=== PATIENT | male | born 1950 | race Hispanic/Latino ===

== ENCOUNTER 2017-08-17 14:30 | Inpatient (IN) | payer MEDICARE ==
[~2017-08-17] VITALS: Ht 175.3 cm; Wt 128.8 kg
[2017-08-20] MEDS: CEFAZOLIN SODIUM 1 GM VIAL IVP SCH (07:00)
[2017-08-20 14:57] VITALS: BP 158/95
[2017-08-20 15:03] LABS: APPEARANCE,URINE Clear (CLEAR); BILIRUBIN,URINE Negative (NEGATIVE); COLOR,URINE Yellow (YELLOW); GLUCOSE, URINE (UA) Negative (NEGATIVE); KETONES,URINE Negative (NEGATIVE); LEUKOCYTE ESTERASE ,URINE Negative (NEGATIVE); NITRATE,URINE Negative (NEGATIVE); OCCULT BLOOD,URINE Negative (NEGATIVE); PROTEIN,URINE Negative (NEGATIVE); UROBILINOGEN,URINE 0.2 mg/dL (0.2-1.0)
[2017-08-21] MEDS: CEFAZOLIN SODIUM 1 GM VIAL IVP SCH (15:45)
[2017-08-23] VITALS (26 sets, daily range): BP systolic 99–147; BP diastolic 52–86
[2017-08-23] MEDS ORDERED: LACTATED RINGERS 1000ML 1,000 ML IV ONE (07:04)
[2017-08-23] MEDS ORDERED: BUPIVACAINE/EPI/PF 0.25% 30ML VIAL IJ ONE (07:12)
[2017-08-23] MEDS ORDERED: CEFAZOLIN SODIUM 1 GM VIAL ONE ×2 (07:12→10:25)
[2017-08-23] MEDS ORDERED: TRANEXAMIC ACID 1000MG/10ML IV ONE (07:12)
[2017-08-23] MEDS ORDERED: LIDOCAINE PF 2% 5ML ABBOJECT ONE (07:59)
[2017-08-23] MEDS ORDERED: FENTANYL CITRATE PF 50 MCG/1 ML 2ML VIAL ONE ×3 (07:59→10:46)
[2017-08-23] MEDS ORDERED: PROPOFOL 10 MG/ML 20ML VIAL IV ONE (07:59)
[2017-08-23] MEDS ORDERED: ROCURONIUM BROMIDE 10MG/1ML 5ML VL ONE (07:59)
[2017-08-23] MEDS ORDERED: MIDAZOLAM HCL 1 MG/ML 2ML VIAL ONE (07:59)
[2017-08-23] MEDS ORDERED: DEXAMETHASONE SOD PHOSPHATE 10MG/ML 1ML VIAL ONE (07:59)
[2017-08-23] MEDS ORDERED: ROPIVACAINE 0.5% 5MG/ML 30ML IJ ONE (08:01)
[2017-08-23] MEDS: CEFAZOLIN SODIUM 1 GM VIAL IVP SCH (08:54)
[2017-08-23] MEDS ORDERED: ONDANSETRON HCL MDV 20ML 2 MG/ML VIAL ONE ×2 (09:12→10:19)
[2017-08-23] MEDS ORDERED: GLYCOPYRROLATE 0.2 MG/ML 5 ML VIAL ONE (10:19)
[2017-08-23] MEDS ORDERED: NEOSTIGMINE METHYLSULFATE 1MG/ML IV ONE (10:19)
[2017-08-23] MEDS ORDERED: DIPHENHYDRAMINE HCL 25 MG CAPSULE PO PRN (10:45)
[2017-08-23] MEDS ORDERED: TRAMADOL HCL 50 MG TABLET PO PRN (10:45)
[2017-08-23] MEDS ORDERED: LIDOCAINE HCL-MPF 1% 2ML VIAL IVP PRN (10:45)
[2017-08-23] MEDS ORDERED: OXYCODONE HCL 5 MG TAB PO PRN (10:45)
[2017-08-23] MEDS ORDERED: POTASSIUM CHLORIDE 20MEQ/100ML 100 ML IV PRN (10:45)
[2017-08-23] MEDS ORDERED: PROMETHAZINE HCL 25 MG/ML 1ML AMPULE IM PRN (10:45)
[2017-08-23] MEDS: ACETAMINOPHEN 325 MG TAB PO SCH ×3 (10:45→23:01)
[2017-08-23] MEDS ORDERED: CALCIUM CARBONATE 500 MG TABLET PO PRN (10:45)
[2017-08-23] MEDS ORDERED: TEMAZEPAM 15 MG CAPSULE PO PRN (10:45)
[2017-08-23] MEDS ORDERED: POTASSIUM CHLORIDE 20 MEQ ERTAB PO PRN (10:45)
[2017-08-23] MEDS ORDERED: DiphenhydrAMINE HCL 50 MG/ML VIAL IVP PRN (10:45)
[2017-08-23] MEDS ORDERED: POTASSIUM CHLORIDE 10% ELIXIR 20 MEQ/15 ML UDCUP PO PRN (10:45)
[2017-08-23] MEDS ORDERED: FERROUS FUMARATE 324 MG TABLET PO PRN (10:45)
[2017-08-23] MEDS ORDERED: MEPERIDINE-PF 25 MG/ML SYG ONE ×2 (11:43→11:55)
[2017-08-23] MEDS: PSYLLIUM SEED 1 EACH PACKET PO SCH (12:00)
[2017-08-23] MEDS: CEFAZOLIN 3GM /D5W 100ML 100 ML IV SCH ×2 (16:51→23:30)
[2017-08-23] MEDS: SODIUM CHLORIDE 0.9% 1000ML 1,000 ML IV SCH ×2 (16:52→20:39)
[2017-08-23] MEDS: KETOROLAC TROMETHAMINE 15MG/ML IV PRN (16:59)
[2017-08-23] MEDS: PREGABALIN 25 MG CAP PO SCH (19:51)
[2017-08-23] MEDS: ASPIRIN 325 MG TABLET PO SCH (19:51)
[2017-08-23] MEDS: FAMOTIDINE 20MG TAB 20 MG TAB PO SCH (19:51)
[2017-08-24] MEDS: SODIUM CHLORIDE 0.9% 1000ML 1,000 ML IV SCH (04:50)
[2017-08-24] MEDS: ACETAMINOPHEN 325 MG TAB PO SCH ×4 (05:13→22:45)
[2017-08-24 05:37] VITALS: BP 134/69
[2017-08-24 05:43] LABS: HEMATOCRIT 37.1 % (42-54); MEAN CORPUSCULAR HEMOGLOBIN 30.6 pg (27.0-33.0); MEAN CORPUSCULAR HGB CONC 34.9 g/dL (32.0-36.0); MEAN CORPUSCULAR VOLUME 87.7 fL (79-99); PLATELET COUNT (AUTO) 185 K/uL (130-400); RED BLOOD CELL COUNT(AUTO) 4.23 MIL/uL (4.50-6.20); RED CELL DISTRIBUTION WIDTH 14.2 % (11.0-15.5); WHITE BLOOD COUNT (AUTO) 9.2 K/uL (4.8-10.8)
[2017-08-24 05:55] LABS: CREATININE 0.8 mg/dL (0.5-1.5); POTASSIUM 3.7 mmol/L (3.5-5.1)
[2017-08-24 07:00] VITALS: BP 132/76
[2017-08-24] MEDS: TAMSULOSIN HCL 0.4 MG CAP.ER.24H PO SCH (09:00)
[2017-08-24] MEDS: ASPIRIN 325 MG TABLET PO SCH ×2 (09:31→19:39)
[2017-08-24] MEDS: POLYETHYLENE GLYCOL 3350 17 GM POWD.PACK PO SCH (09:31)
[2017-08-24] MEDS: PREGABALIN 25 MG CAP PO SCH ×2 (09:31→19:39)
[2017-08-24] MEDS: FAMOTIDINE 20MG TAB 20 MG TAB PO SCH ×2 (09:31→19:39)
[2017-08-24] MEDS: KETOROLAC TROMETHAMINE 15MG/ML IV PRN (09:32)
[2017-08-24 11:13] VITALS: BP 110/64
[2017-08-24] MEDS: PSYLLIUM SEED 1 EACH PACKET PO SCH (12:44)
[2017-08-24 15:33] VITALS: BP 102/59
[2017-08-24] MEDS: OXYCODONE HCL 5 MG TAB PO PRN (17:51)
[2017-08-24 20:00] VITALS: BP 128/79
[2017-08-25] VITALS: BP 118/64
[2017-08-25] MEDS: ACETAMINOPHEN 325 MG TAB PO SCH ×2 (03:45→10:35)
[2017-08-25 04:00] VITALS: BP 127/71
[2017-08-25 05:31] LABS: HEMATOCRIT 32.9 % (42-54); MEAN CORPUSCULAR HEMOGLOBIN 31.8 pg (27.0-33.0); MEAN CORPUSCULAR HGB CONC 36.1 g/dL (32.0-36.0); PLATELET COUNT (AUTO) 151 K/uL (130-400); RED BLOOD CELL COUNT(AUTO) 3.74 MIL/uL (4.50-6.20); RED CELL DISTRIBUTION WIDTH 14.1 % (11.0-15.5); WHITE BLOOD COUNT (AUTO) 7.2 K/uL (4.8-10.8)
[2017-08-25 05:49] LABS: CREATININE 0.8 mg/dL (0.5-1.5)
[2017-08-25 07:00] VITALS: BP 120/60
[2017-08-25] MEDS: TAMSULOSIN HCL 0.4 MG CAP.ER.24H PO SCH (09:33)
[2017-08-25] MEDS: FAMOTIDINE 20MG TAB 20 MG TAB PO SCH (09:33)
[2017-08-25] MEDS: ASPIRIN 325 MG TABLET PO SCH (09:33)
[2017-08-25] MEDS: PREGABALIN 25 MG CAP PO SCH (09:33)
[2017-08-25] MEDS: OXYCODONE HCL 5 MG TAB PO PRN (09:33)
[2017-08-25] MEDS: POLYETHYLENE GLYCOL 3350 17 GM POWD.PACK PO SCH (09:33)
[2017-08-25] MEDS ORDERED: BISACODYL 5 MG TABLET.DR PO PRN (10:45)
[2017-08-25 11:00] VITALS: BP 112/52
[2017-08-25] MEDS: PSYLLIUM SEED 1 EACH PACKET PO SCH (11:41)
[2017-08-25] MEDS ORDERED: HYDR-309 PO (13:07)
[2017-08-25] MEDS ORDERED: ASPI-1012 PO (13:07)
[2017-08-26] MEDS ORDERED: BISACODYL 10 MG SUPP.RECT RC PRN (10:45)
[2017-10-28] MEDS ORDERED: NAPR220C15 PO (15:26)
== END 2017-08-25 15:36 | disposition home health service (06) | DRG 470 ==
LOC: EDSTATUS 08-20 14:30 → DAHIP 08-23 05:49 → 4AH 08-23 12:18
PROVIDERS: ADMIT Orthopaedic Surgery; ATTEND Orthopaedic Surgery
PROC: 0SRD0J9 Replacement of Left Knee Joint with Synthetic Substitute, Cemented, Open Approach (ICD-10-PCS; principal; 2017-08-23 08:21)
DX: M17.12 Unilateral primary osteoarthritis, left knee (principal); G89.29 Other chronic pain; Z96.651 Presence of right artificial knee joint; Z88.2 Allergy status to sulfonamides
CPT/HCPCS: 36415; 80048; 81003; 85027; 85730; 88305; 88311; 93005; 97039; A4218; C1713; J0690; J1100; J1885; J2001; J2175; J2250; J2704; J2710; J2795; J3010; J3490; J7120

== ENCOUNTER 2017-10-29 06:32 | Day surgery (SDC) | payer MEDICARE ==
[2017-10-28 15:04] LABS: BASOPHILS % (AUTO) 0.6 % (0.0-5.0); EOSINOPHILS % (AUTO) 3.9 % (0.0-8.0); HEMATOCRIT 41.3 % (42-54); MEAN CORPUSCULAR HEMOGLOBIN 30.1 pg (27.0-33.0); MEAN CORPUSCULAR HGB CONC 34.2 g/dL (32.0-36.0); MEAN CORPUSCULAR VOLUME 87.8 fL (79-99); MONOCYTES % (AUTO) 10.1 % (3.0-13.0); NEUTROPHILS % (AUTO) 57.4 % (40.0-77.0); PLATELET COUNT (AUTO) 245 K/uL (130-400); RED CELL DISTRIBUTION WIDTH 14.4 % (11.0-15.5); WHITE BLOOD COUNT (AUTO) 4.7 K/uL (4.8-10.8)
[2017-10-28 15:07] VITALS: BP 154/80
[2017-10-28 15:13] LABS: CREATININE 0.9 mg/dL (0.5-1.5); POTASSIUM 4.2 mmol/L (3.5-5.1)
[2017-10-28] MEDS: CEFAZOLIN SODIUM 1 GM VIAL IVP SCH (16:15)
[2017-10-29] VITALS (15 sets, daily range): BP systolic 108–132; BP diastolic 57–77
[~2017-10-29] VITALS: Ht 177.8 cm; Wt 127.3 kg
[~2017-10-29 06:32] MED LIST: NAPR220C15 PO
[2017-10-29] MEDS ORDERED: LACTATED RINGERS 1000ML 1,000 ML IV ONE (08:10)
[2017-10-29] MEDS ORDERED: LIDOCAINE PF 2% 5ML ABBOJECT ONE (09:01)
[2017-10-29] MEDS ORDERED: PROPOFOL 10 MG/ML 20ML VIAL IV ONE ×2 (09:01→09:46)
[2017-10-29] MEDS ORDERED: ROCURONIUM BROMIDE 10MG/1ML 5ML VL ONE (09:01)
[2017-10-29] MEDS ORDERED: MIDAZOLAM HCL 1 MG/ML 2ML VIAL ONE (09:01)
[2017-10-29] MEDS ORDERED: FENTANYL CITRATE PF 50 MCG/1 ML 2ML VIAL ONE ×2 (09:02→09:54)
[2017-10-29] MEDS: CEFAZOLIN SODIUM 1 GM VIAL IVP SCH (09:54)
[2017-10-29] MEDS ORDERED: ONDANSETRON HCL MDV 20ML 2 MG/ML VIAL ONE (10:25)
[2017-10-29] MEDS ORDERED: KETOROLAC TROMETHAMINE 30MG/ML ONE (10:25)
[2017-10-29] MEDS ORDERED: MEPERIDINE-PF 25 MG/ML SYG ONE (10:44)
[2017-10-29] MEDS ORDERED: CEPH-578 PO (11:03)
[2017-10-29] MEDS ORDERED: TYL3 PO (11:03)
== END 2017-10-29 12:50 | disposition home or self-care (01) ==
LOC: DAH 06:32
PROVIDERS: ATTEND Orthopaedic Surgery
DX: M67.262 Synovial hypertrophy, not elsewhere classified, left lower leg (principal); Z79.899 Other long term (current) drug therapy; Z98.890 Other specified postprocedural states; Z96.653 Presence of artificial knee joint, bilateral; Z83.3 Family history of diabetes mellitus; Z88.2 Allergy status to sulfonamides
CPT/HCPCS: 29875; 36415; 80048; 85025; A4218; A4606; A4649 ×2; A4930 ×2; A6223; J0690; J1885; J2001; J2175; J2250; J2704 ×2; J3010 ×2; J3490; J7120 ×2

== ENCOUNTER → 2018-02-09 | Outpatient (CLI) | payer OTHER ==
[~2018-02-09] MED LIST changes: +CEPH-578 PO; +TYL3 PO
== END | disposition home or self-care (01) ==
LOC: OIH 13:46
PROVIDERS: ATTEND Internal Medicine Cardiovascular Disease
DX: Z13.6 Encounter for screening for cardiovascular disorders (principal)
CPT/HCPCS: 75571

== ENCOUNTER 2019-01-11 09:41 | Inpatient (IN) | payer MEDICARE, OTHER | END 2019-01-13 20:39 | disposition home health service (06) | LOC: DAHIP 09:41 → 4AH 17:35 | PROC: 0SWD0JZ Revision of Synthetic Substitute in Left Knee Joint, Open Approach (ICD-10-PCS; principal; 2019-01-11 14:12) | DX: T84.093A Other mechanical complication of internal left knee prosthesis, initial encounter (principal) ==

== ENCOUNTER → 2019-11-28 | Outpatient (CLI) | payer MEDICARE ==
[~2019-11-28] MED LIST changes: -CEPH-578 PO; +HYDR-4457 PO; +METO-408 PO; -NAPR220C15 PO; -TYL3 PO
== END | disposition home or self-care (01) ==
LOC: SHCH 10:26
PROVIDERS: ATTEND Internal Medicine Cardiovascular Disease
DX: R01.1 Cardiac murmur, unspecified (principal); R09.89 Other specified symptoms and signs involving the circulatory and respiratory systems
CPT/HCPCS: 93306; 93356; 93880